=== PATIENT | female | born 1940 | race Caucasian/White ===

== ENCOUNTER 2017-05-25 13:15 | Emergency (ER) | payer OTHER ==
[2017-05-25 13:26] VITALS: BP 156/87; PULSE 66; TEMP 98.1; BMI 199.4
--- NOTE | 2017-05-25 13:40 | PDOC ---
History of Present Illness - General Chief Complaint: Pain Stated Complaint: LEFT LEG PAIN Time Seen by Provider: 05/25/17 13:33 History Source: Patient Exam Limitations: No Limitations - History of Present Illness Initial Comments: 76 yo F history arrhythmia presents with LLE pain. She states she had a recent fall, injured the L knee, still has slight bruising. However, yesterday, she started to notice an unusual sensation, described as discomfort, not pain to the L lower leg, medial to posterior area, distal to the knee. No direct trauma to the area. She states that it was bothering her all day yesterday, improved with aspirin and local massage. Denies swelling. Past History - Past Medical History Allergies/Adverse Reactions: Allergies Allergy/AdvReac Type Severity Reaction Status Date / Time meperidine HCl [From Demerol] Allergy Verified 05/25/17 13:21 Penicillins Allergy Verified 05/25/17 13:21 Home Medications: Ambulatory Orders Nadolol [Corgard] 20 mg PO DAILY 05/25/17 Cardiac Disorders: Yes (ARRHYTHMIA) - Suicide/Smoking/Psychosocial Hx Smoking History: Never smoked Hx Alcohol Use: (occasional) Review of Systems - Review of Systems Able to Perform ROS?: Yes Comments:: GENERAL/CONSTITUTIONAL: No fever or chills. No weakness. HEAD, EYES, EARS, NOSE AND THROAT: No change in vision. No ear pain or discharge. No sore throat. CARDIOVASCULAR: No chest pain or shortness of breath. RESPIRATORY: No cough, wheezing, or hemoptysis. GASTROINTESTINAL: No nausea, vomiting, diarrhea or constipation. GENITOURINARY: No dysuria, frequency, or change in urination. MUSCULOSKELETAL: +LLE discomfort. No joint or muscle swelling. No neck or back pain. SKIN: No rash NEUROLOGIC: No headache, vertigo, loss of consciousness, or change in strength/ sensation. ENDOCRINE: No increased thirst. No abnormal weight change. HEMATOLOGIC/LYMPHATIC: No anemia, easy bleeding, or history of blood clots. ALLERGIC/IMMUNOLOGIC: No hives or skin allergy. *Physical Exam - Vital Signs Last Vital Signs Temp Pulse Resp BP Pulse Ox 98.1 F 66 18 156/87 96 05/25/17 13:15 05/25/17 13:15 05/25/17 13:15 05/25/17 13:15 05/25/17 13:15 - Physical Exam Comments: GENERAL: Awake, alert, and fully oriented, in no acute distress HEAD: No signs of trauma EYES: PERRLA, EOMI, sclera anicteric, conjunctiva clear ENT: Auricles normal inspection, hearing grossly normal, nares patent, oropharynx clear without exudates. Moist mucosa NECK: Normal ROM, supple, no lymphadenopathy, JVD, or masses LUNGS: Breath sounds equal, clear to auscultation bilaterally. No wheezes, and no crackles HEART: Regular rate and rhythm, normal S1 and S2, no murmurs, rubs or gallops ABDOMEN: Soft, nontender, normoactive bowel sounds. No guarding, no rebound. No masses EXTREMITIES: Normal range of motion, no edema. No clubbing or cyanosis. No cords , erythema. +Tenderness to L calf, more towards the medial side, with a small ecchymosis noted to the same area. NEUROLOGICAL: Cranial nerves II through XII grossly intact. Normal speech, normal gait SKIN: Warm, Dry, normal turgor, no lesions noted. +Hyperpigmentation to the L ankle (chronic, per patient, since a bout with cellulitis in the past). Medical Decision Making - Medical Decision Making 05/25/17 14:47 DVT study negative. Stable for DC home. *DC/Admit/Observation/Transfer Diagnosis at time of Disposition: Leg pain Qualifiers: Laterality: left Qualified Code(s): M79.605 - Pain in left leg - Discharge Dispostion Disposition: HOME Condition at time of disposition: Stable Admit: No
== END 2017-05-25 15:05 | disposition home or self-care (01) ==
LOC: FER 13:15
DX: M79.605 Pain in left leg (principal); I49.9 Cardiac arrhythmia, unspecified
CPT/HCPCS: 93971-TC; 99283-25